=== PATIENT | female | born 1940 | race Caucasian/White ===

== ENCOUNTER 2017-01-29 20:13 | Inpatient (IN) | payer MEDICARE ==
[~2017-01-29] VITALS: Ht 165.1 cm; Wt 92.2 kg
[2017-01-29] MEDS ORDERED: SODIUM CHLORIDE 0.9% 1,000 ML IV ONE (20:48)
[2017-01-29] MEDS ORDERED: MELO-190 PO (21:00)
[2017-01-29] MEDS ORDERED: PLEASE ENTER HEIGHT AND WEIGHT MC SCH (21:00)
[2017-01-29] MEDS ORDERED: LETR2.5T PO (21:00)
[2017-01-29] MEDS ORDERED: BENZ200C40 PO (21:00)
[2017-01-29] MEDS ORDERED: PLEASE ENTER ALLERGIES MC SCH ×2 (21:00)
[2017-01-29] MEDS ORDERED: ALLO300T PO (21:00)
[2017-01-29] MEDS ORDERED: METF850T2 PO (21:00)
[2017-01-29] MEDS ORDERED: DIVA500T9 PO (21:00)
[2017-01-29 21:28] LABS: ASPARTATE AMINO TRANSFERASE 11 U/L (15-37); BLOOD UREA NITROGEN 15 mg/dL (7-18)
[2017-01-29] MEDS ORDERED: OMNIPAQUE 350 MG/ML, 100ML BOTTLE ONE (22:00)
[2017-01-29 22:23] LABS: PATH.CAST-FLAG NOT PRESENT; SPERM-FLAG NOT PRESENT; SRC-FLAG NOT PRESENT; XTAL-FLAG NOT PRESENT; YLC-FLAG NOT PRESENT
[2017-01-29] MEDS ORDERED: ACETAMINOPHEN 325 MG TABLET PO ONE (23:00)
[2017-01-29] MEDS ORDERED: CEFTRIAXONE PMX 1GM/50ML 50 ML IV ONE (23:00)
[2017-01-29] MEDS ORDERED: ACETAMINOPHEN 500 MG TABLET ONE (23:08)
[2017-01-29] MEDS ORDERED: CEFTRIAXONE PMX 1GM/50ML 50 ML ONE (23:09)
[2017-01-30] MEDS: CEFTRIAXONE PMX 1GM/50ML 50 ML IV SCH (00:46)
[2017-01-30] MEDS ORDERED: BISACODYL 10 MG SUPP PR PRN (01:00)
[2017-01-30] MEDS ORDERED: ONDANSETRON 2MG/ML, 2ML IVP PRN (01:00)
[2017-01-30] MEDS ORDERED: POLYETHYLENE GLYCOL 17 GM PACKET PO PRN (01:00)
[2017-01-30] MEDS: BENZONATATE 100 MG CAPSULE PO SCH ×4 (01:00→21:00)
[2017-01-30 02:42] VITALS: BP 103/68
[2017-01-30] MEDS: SODIUM CHLORIDE 0.9% 1,000 ML IV SCH ×3 (03:11→20:45)
[2017-01-30 06:02] LABS: ASPARTATE AMINO TRANSFERASE 10 U/L (15-37); BLOOD UREA NITROGEN 14 mg/dL (7-18)
[2017-01-30 06:52] VITALS: BP 123/67
[2017-01-30] MEDS: DIVALPROEX 500 MG TABLET.DR PO SCH ×2 (08:59→22:14)
[2017-01-30] MEDS: SENNA/DOCUSATE TABLET PO SCH (08:59)
[2017-01-30] MEDS: metFORMIN 850 MG TABLET PO SCH ×2 (08:59→22:14)
[2017-01-30] MEDS: ALLOPURINOL 300 MG TABLET PO SCH (08:59)
[2017-01-30] MEDS: LETROZOLE 2.5 MG TABLET PO SCH (12:27)
[2017-01-30 13:10] VITALS: BP 115/68
[2017-01-30] MEDS: ACETAMINOPHEN 325 MG TABLET PO PRN ×2 (18:26→22:14)
[2017-01-30 21:10] VITALS: BP 98/64
[2017-01-31] MEDS: CEFTRIAXONE PMX 1GM/50ML 50 ML IV SCH ×2 (01:29→23:57)
[2017-01-31] MEDS: SODIUM CHLORIDE 0.9% 1,000 ML IV SCH ×3 (01:40→21:30)
[2017-01-31 02:55] VITALS: BP 109/71
[2017-01-31 05:30] LABS: ASPARTATE AMINO TRANSFERASE 14 U/L (15-37); BLOOD UREA NITROGEN 10 mg/dL (7-18)
[2017-01-31] MEDS: ACETAMINOPHEN 325 MG TABLET PO PRN ×3 (05:39→23:57)
[2017-01-31] MEDS ORDERED: SIMV40TA3 PO (06:41)
[2017-01-31] MEDS ORDERED: MIRA50TA PO (06:41)
[2017-01-31] MEDS ORDERED: LEVO25TA4 PO (06:41)
[2017-01-31 08:47] VITALS: BP 115/74
[2017-01-31] MEDS: LETROZOLE 2.5 MG TABLET PO SCH (09:00)
[2017-01-31] MEDS: BENZONATATE 100 MG CAPSULE PO SCH ×3 (09:00→21:00)
[2017-01-31] MEDS: ALLOPURINOL 300 MG TABLET PO SCH (09:00)
[2017-01-31] MEDS: SENNA/DOCUSATE TABLET PO SCH (09:17)
[2017-01-31] MEDS: DIVALPROEX 500 MG TABLET.DR PO SCH ×2 (09:17→21:26)
[2017-01-31] MEDS: metFORMIN 850 MG TABLET PO SCH ×2 (09:17→21:26)
[2017-01-31 13:30] VITALS: BP 124/77
[2017-01-31 19:44] VITALS: BP 112/71
[2017-02-01 04:04] VITALS: BP 114/65
[2017-02-01] MEDS: SODIUM CHLORIDE 0.9% 1,000 ML IV SCH (06:12)
[2017-02-01 06:51] VITALS: BP 122/77
[2017-02-01] MEDS: metFORMIN 850 MG TABLET PO SCH (08:14)
[2017-02-01] MEDS: ALLOPURINOL 300 MG TABLET PO SCH (08:14)
[2017-02-01] MEDS: SENNA/DOCUSATE TABLET PO SCH (08:14)
[2017-02-01] MEDS: DIVALPROEX 500 MG TABLET.DR PO SCH (08:14)
[2017-02-01] MEDS: BENZONATATE 100 MG CAPSULE PO SCH ×2 (08:14→08:15)
[2017-02-01] MEDS: ACETAMINOPHEN 325 MG TABLET PO PRN (11:35)
[2017-02-01 13:35] VITALS: BP 103/69
[2017-02-01] MEDS: LETROZOLE 2.5 MG TABLET PO SCH (15:50)
[2017-02-01] MEDS ORDERED: AMOX1TAB64 PO ×2 (15:57→16:04)
[2017-02-01 17:44] VITALS: BP 118/76
== END 2017-02-01 18:35 | disposition home health service (06) | DRG 689 ==
LOC: ED 23:37 → EDIP 01-30 01:35 → 4NOR 01-30 02:00
PROVIDERS: ADMIT Internal Medicine; ATTEND Internal Medicine
PROC: 0T9B70Z Drainage of Bladder with Drainage Device, Via Natural or Artificial Opening (ICD-10-PCS; principal; 2017-01-30)
DX: N39.0 Urinary tract infection, site not specified (principal); E43 Unspecified severe protein-calorie malnutrition; K56.60 Unspecified intestinal obstruction; E11.65 Type 2 diabetes mellitus with hyperglycemia; E87.6 Hypokalemia; G40.909 Epilepsy, unspecified, not intractable, without status epilepticus; Z66 Do not resuscitate; R00.0 Tachycardia, unspecified; Z85.3 Personal history of malignant neoplasm of breast; Z86.61 Personal history of infections of the central nervous system; R53.81 Other malaise; D64.9 Anemia, unspecified; M10.9 Gout, unspecified; M19.90 Unspecified osteoarthritis, unspecified site; E66.9 Obesity, unspecified; Z90.49 Acquired absence of other specified parts of digestive tract; Z68.33 Body mass index [BMI] 33.0-33.9, adult; Z90.710 Acquired absence of both cervix and uterus; Z82.3 Family history of stroke; Z80.6 Family history of leukemia
CPT/HCPCS: 36415; 74177; 80053; 81001; 82962; 83036; 83605; 84145; 85025; 87040; 87077; 87086; 87186; 96361; 96365; 96366; J0696; Q9967; J7030